=== PATIENT | female | born 1975 | race Caucasian/White ===

== ENCOUNTER 2021-06-30 06:49 | Emergency (ER) | payer BC, SELFPAY ==
[2021-06-30] VITALS (10 sets, daily range): BP systolic 105–157; BP diastolic 66–133; PULSE 80–137; RESP 16–22; TEMP 36.8–38.2; O2SAT 92–100; BMI 28.1
--- NOTE | 2021-06-30 07:30 | ED_ITS ---
HPI - Abdominal Pain General: Chief Complaint: Abdominal Pain Stated Complaint: FEVER, ABD PAIN, DRY HEAVES Time Seen by Provider: 06/30/21 07:17 Source: patient Mode of arrival: ambulatory Limitations: no limitations History of Present Illness: HPI narrative: 46-year-old female states been having abdominal pain since . States it is worsened and is now severe in nature. States that on the right side and her right flank. States she is also had fevers along with chills. Denies any vomiting but has had dry heaves and nausea. She had no diarrhea. She denies any cough. She denies any worsening improving factors. MD elicited complaint: abdominal pain Associated Symptoms: Reports chills and fever(s) Review of Systems Const: Reports: fever(s), chills and body aches Eyes: Denies: blurry vision or eye discomfort ENMT: Denies: throat pain or dental pain Card: Denies: chest pain Resp: Denies: dyspnea GI: Reports: abdominal pain : Reports: flank pain Musc: Denies: neck pain or back pain Skin/Breast: Denies: rash Neuro: Denies: headache(s) Psych: Denies: depression Jono/Lymph: Denies: easy bruising All/Imm: Denies: urticaria PFSH ED PFSH: Social History (Updated 09/11/20 @ 10:39 by Nimco Gaytan [facility]) Smoking and tobacco status: never smoked Alcohol intake: never Physical Exam Const: COMMON NORMALS: no acute distress, patient oriented x3 and healthy appearing HENMT: COMMON NORMALS: normocephalic and atraumatic HEAD & SCALP: normocephalic and atraumatic Eye: COMMON NORMALS: Equal, round and reactive pupils present and EOMs intact bilaterally PUPIL: Yes Equal, round and reactive pupils present Neck/C-Spine: COMMON NORMALS: full ROM and supple Chest: COMMONS NORMALS: normal inspection of the chest and normal palpation of entire chest wall Resp: COMMON NORMALS: normal respiratory effort, No retractions, No use of accessory muscles and clear to auscultation bilaterally AUSCULTATION: clear to auscultation bilaterally Cardio: COMMON NORMALS: regular rate, regular rhythm and No murmurs present (Cardio) RATE: regular rate RHYTHM: regular rhythm GI: COMMON NORMALS: Normal to inspection, nondistended, normoactive bowel sounds present, Soft to palpation, non-tender and no masses PALPATION: Yes Soft to palpation Extremity: COMMON NORMALS: normal to inspection and full ROM Neuro: COMMON NORMALS: patient oriented x3, moves all extremities and no focal motor deficits Psych: COMMON NORMALS: mental status grossly normal, Normal thought process present and cooperative THOUGHT PROCESS: Normal thought process present Skin: COMMON NORMALS: no rashes or lesions noted and no wounds GENERAL SKIN EXAM: no rashes or lesions noted Course Vital Signs: Vital signs: Vital Signs Temperature 98.2 F 06/30/21 10:00 Pulse Rate 97 06/30/21 10:00 Respiratory Rate 18 06/30/21 10:00 Blood Pressure 120/77 06/30/21 10:00 Pulse Oximetry 92 06/30/21 10:00 MDM - Abdominal Pain MDM Narrative: Medical decision making narrative: Patient presents here with acute kidney infection. She feels much improved here and is no longer in pain. She said no vomiting here. We will give her an IV dose antibiotics here and place her on Keflex for home. She is to follow-up with PCP and return to the ER if worsening. She does have some hyponatremia likely due to dehydration. I did give her IV fluids here. Lab Data: Labs: Lab Results 06/30/21 06/30/21 06/30/21 Range/Units 07:42 07:42 07:42 WBC 11.9 H (4.0-10.0) 10^3/ uL RBC 5.08 (4.1-5.3) 10^6/u L Hgb 14.4 (11.5-15.3) g/dL Hct 45.0 (37.0-47.0) % MCV 88.6 (81-99) fL MCH 28.3 (28.0-34.0) pg MCHC 32.0 (30.0-36.0) g/dL RDW 15.7 H (12.1-15.1) % Plt Count 161 (130-400) 10^3/c mm MPV 11.4 H (7.4-10.4) fL Neut % (Auto) 85.6 % Lymph % (Auto) 7.3 % [place] % (Auto) 6.0 % Eos % (Auto) 0.1 % Baso % (Auto) 0.4 % Neut # (Auto) 10.15 H (1.8-7.7) 10^3/u L Lymph # (Auto) 0.9 (0.8-4.8) 10^3/u L [place] # (Auto) 0.7 (0.2-0.9) 10^3/u L Eos # (Auto) 0.0 (0.0-0.8) 10^3/u L Baso # (Auto) 0.1 (0.0-0.1) 10^3/u L Nucleated RBC % (a uto) 0 % Nucleated RBCs # 0.0 /100WBC Sodium Cancelled Potassium Cancelled Chloride Cancelled Carbon Dioxide Cancelled Anion Gap Cancelled BUN Cancelled Creatinine Cancelled GFR Calculation Cancelled Glucose Cancelled Calculated Osmolal ity Cancelled Calcium Cancelled Total Bilirubin Cancelled AST Cancelled ALT Cancelled Alkaline Phosphata se Cancelled Total Protein Cancelled Albumin Cancelled Globulin Cancelled Lipase Cancelled Urine Color (Yellow) Urine Appearance (CLEAR) Urine pH (5-7) Ur Specific Gravit y (1.005-1.030) Urine Protein (Negative) Urine Glucose (UA) (Normal) Urine Ketones (Negative) Urine Blood (Negative) Urine Nitrate (Negative) Urine Bilirubin (Negative) Urine Urobilinogen (Negative) mg/dL Ur Leukocyte Reny ase (Negative) Urine RBC (0-2) /hpf Urine WBC (0-5) /hpf Ur Squamous Epith Cells (0-5) /hpf Amorphous Sediment Urine Bacteria (NONE) /hpf SARS-CoV-2 Ag (Rap id) Negative (Negative) 06/30/21 06/30/21 Range/Units 08:24 10:08 WBC (4.0-10.0) 10^3/ uL RBC (4.1-5.3) 10^6/u L Hgb (11.5-15.3) g/dL Hct (37.0-47.0) % MCV (81-99) fL MCH (28.0-34.0) pg MCHC (30.0-36.0) g/dL RDW (12.1-15.1) % Plt Count (130-400) 10^3/c mm MPV (7.4-10.4) fL Neut % (Auto) % Lymph % (Auto) % [place] % (Auto) % Eos % (Auto) % Baso % (Auto) % Neut # (Auto) (1.8-7.7) 10^3/u L Lymph # (Auto) (0.8-4.8) 10^3/u L [place] # (Auto) (0.2-0.9) 10^3/u L Eos # (Auto) (0.0-0.8) 10^3/u L Baso # (Auto) (0.0-0.1) 10^3/u L Nucleated RBC % (a uto) % Nucleated RBCs # /100WBC Sodium 127 L Potassium 3.2 L Chloride 96 L Carbon Dioxide 20 L Anion Gap 14.2 BUN 10 Creatinine 1.1 H GFR Calculation 53.7 L Glucose 108 Calculated Osmolal ity 264 L Calcium 8.3 L Total Bilirubin 0.5 AST 31 ALT 73 H Alkaline Phosphata se 153 H Total Protein 6.9 Albumin 3.3 L Globulin 3.6 Lipase 9 L Urine Color Yellow (Yellow) Urine Appearance Hazy A (CLEAR) Urine pH 5 (5-7) Ur Specific Gravit y 1.010 (1.005-1.030) Urine Protein 2+ H (Negative) Urine Glucose (UA) Norm (Normal) Urine Ketones Negative (Negative) Urine Blood 3+ H (Negative) Urine Nitrate Positive H (Negative) Urine Bilirubin 1+ H (Negative) Urine Urobilinogen 4 H (Negative) mg/dL Ur Leukocyte Reny ase 1+ H (Negative) Urine RBC 15-25 H (0-2) /hpf Urine WBC 15-25 H (0-5) /hpf Ur Squamous Epith Cells 15-25 H (0-5) /hpf Amorphous Sediment Not Reportable Urine Bacteria 2+ H (NONE) /hpf SARS-CoV-2 Ag (Rap id) (Negative) Discharge Plan Discharge Patient Disposition: Home Clinical Impression: Pyelonephritis Condition: Stable Prescriptions: New hydrocodone-acetaminophen 5-325 mg tablet 1 tab PO Q6H PRN (Reason: pain) Qty: 14 RF: 0 cephalexin 500 mg capsule 500 mg PO QID 10 Days Qty: 40 RF: 0 ondansetron 4 mg tablet,disintegrating 4 mg PO Q6H PRN (Reason: nausea and vomiting) Qty: 14 RF: 0 Discharge Orders: Discharge ED (Routine); Ordered 06/30/21 Ordered By: Zaida Amaya Referrals: Beena Valle PA-C [Primary Care Provider] - 1-3 days Discharge Diet: Advance as tolerated Discharge Activity: Resume usual activity Patient Instructions: Acute Pyelonephritis (ED), Opioid Safety Coding Level of Care Code ED Shirt Turner for Dongg Fwd Exam Comprehensive
--- NOTE | 2021-06-30 07:31 | XRR_ITS ---
PROCEDURE INFORMATION: Exam: XR Chest Exam date and time: 06/30/2021 7:31 AM Age: 46 years old Clinical indication: Dyspnea and fever TECHNIQUE: Imaging protocol: XR of the chest. Views: 1 view. Total images: 1 COMPARISON: No relevant prior studies available. FINDINGS: Lungs: Unremarkable. No consolidation. Pleural spaces: Unremarkable. No pleural effusion. No pneumothorax. Heart/Mediastinum: Unremarkable. No cardiomegaly. Bones/joints: Unremarkable. XR/XR chest 1V portable [id number] IMPRESSION: No acute findings.
[2021-06-30] MEDS: sodium chloride 0.9% 1,000 ML 999 ML IV ×3 (07:40→11:10)
[2021-06-30] MEDS: acetaminophen 500 mg Tablet 1000 MG PO (07:51)
[2021-06-30] MEDS: ondansetron 2 mg/ML SDV 2 mL 4 MG IVP (07:52)
[2021-06-30] MEDS: HYDROmorphone 1 mg/mL INJ 1 mL IVP ×2 (07:54→11:09)
[2021-06-30 07:59] LABS: Basophils # 0.1 10^3/uL (0.0-0.1); Basophils % 0.4 %; Eosinophils % 0.1 %; Hemoglobin 14.4 g/dL (11.5-15.3); Lymphocytes # 0.9 10^3/uL (0.8-4.8); Lymphocytes % 7.3 %; Mean Corpuscular Hemoglobin 28.3 pg (28.0-34.0); Mean Corpuscular Volume 88.6 fL (81-99); Mean Platelet Volume 11.4 fL (7.4-10.4); Monocytes # 0.7 10^3/uL (0.2-0.9); Neutrophils # 10.15 10^3/uL (1.8-7.7); Neutrophils % 85.6 %; Nucleated Red Blood Cells % 0 %; Platelet Count 161 10^3/cmm (130-400); Red Blood Count 5.08 10^6/uL (4.1-5.3); Red Cell Distribution Width 15.7 % (12.1-15.1); White Blood Count 11.9 10^3/uL (4.0-10.0)
[2021-06-30 08:11] LABS: SARS Covid-2 Antigen Negative (Negative)
--- NOTE | 2021-06-30 08:36 | CTR_ITS ---
PROCEDURE INFORMATION: Exam: CT Abdomen And Pelvis With Contrast Exam date and time: 06/30/2021 8:36 AM Age: 46 years old Clinical indication: Abdominal pain; Localized; Prior surgery; Surgery type: Multiple surgeries related to nephrolithiasis. ; Patient HX: Lower abd pain. History of RT renal atrophy due to nephrolithiasis and surgery. TECHNIQUE: Imaging protocol: Computed tomography of the abdomen and pelvis with contrast. Total images: 243 Radiation optimization: All CT scans at this facility use at least one of these dose optimization techniques: automated exposure control; mA and/or kV adjustment per patient size (includes targeted exams where dose is matched to clinical indication); or iterative reconstruction. Contrast material: VISI 320; Contrast volume: 75 ml; Contrast route: INTRAVENOUS (IV); COMPARISON: CR (CHEST, ) 06/30/2021 7:34 AM RADIATION DOSE METRICS: Total DLP (mGy-cm): 1385.38 FINDINGS: Lungs: Mild dependent atelectasis. Liver: Normal. No mass. Gallbladder and bile ducts: Prior cholecystectomy noted. Pancreas: Normal. No ductal dilation. Spleen: Normal. No splenomegaly. Adrenal glands: Normal. No mass. Kidneys and ureters: Heterogeneous enhancement of the right kidney with perinephric fatty stranding may be related prior surgery and scarring but acute pyelonephritis cannot be excluded. No old films available for comparison. There is mild dilatation to an upper pole calyx within the right kidney. No renal, ureteral, nor bladder calculi detected. There are renal cysts present within the right kidney with the largest measuring 2.6 cm and contains milk of calcium. Stomach and bowel: Unremarkable. No obstruction. No mucosal thickening. Appendix: No evidence of appendicitis. Intraperitoneal space: Unremarkable. No free air. No significant fluid collection. Vasculature: Incidental phleboliths noted. Mild atherosclerotic disease is evident. Lymph nodes: Unremarkable. No enlarged lymph nodes. Urinary bladder: Unremarkable as visualized. Reproductive: Unremarkable as visualized. Bones/joints: Unremarkable. No acute fracture. Soft tissues: Unremarkable. CT/CT abdomen pelvis w con* [id number] IMPRESSION: 1. Heterogeneous enhancement of the right kidney with perinephric fatty stranding may be related prior surgery and scarring but acute pyelonephritis cannot be excluded. No old films available for comparison. There is mild dilatation to an upper pole calyx within the right kidney. 2. No renal, ureteral, nor bladder calculi detected. COMMENTS: Consistent with the [place] [employer]'s Incidental Findings Committee white paper (J Am Renetta Radiol 2018): Any incidental renal lesion less than 1 cm or classified as too small to characterize, or any incidental cystic renal lesion characterized as simple-appearing, is likely benign. No follow-up imaging is recommended for these lesions per consensus recommendations based on imaging criteria. Radiation Dose CTDIVOL = (mGy): DLP = 1385.38 (mGy-cm)
[2021-06-30 09:00] LABS: Alanine Aminotransferase 73 U/L (0-33); Albumin Level 3.3 g/dL (3.5-5.2); Alkaline Phosphatase 153 IU/L (35-105); Anion Gap 14.2 (5-19); Aspartate Amino Transferase 31 U/L (0-32); Blood Urea Nitrogen 10 mg/dL (6-20); Calcium 8.3 mg/dL (8.5-10.5); Carbon Dioxide 20 mmol/L (22-29); Chloride 96 mmol/L (98-107); Creatinine Clr Calc Pharmacy 70.9813; Globulin 3.6 g/dL (1.3-4.6); Glomerular Filtration Rate 53.7 mL/min (90-130); Glucose 108 mg/dL (65-115); Lipase 9 U/L (13-60); Osmolality Calculated 264 mOsm/kg (285-295); Potassium 3.2 mmol/L (3.5-5.1); Sodium 127 mmol/L (136-145); Total Bilirubin 0.5 mg/dL (0.15-1.2); Total Protein 6.9 g/dL (6.6-8.7)
[2021-06-30] MEDS: iodixanol 320 mg/mL 100mL Btl IV (09:19)
[2021-06-30 10:30] LABS: Urine Appearance Hazy (CLEAR); Urine Color Yellow (Yellow); pH Urine 5 (5-7)
[2021-06-30 10:31] LABS: Add Urine Microscopic? YES; Bilirubin Urine 1+ (Negative); Blood Urine 3+ (Negative); Glucose Urine UA Norm (Normal); Ketones Urine Negative (Negative); Leukocyte Esterase Urine 1+ (Negative); Nitrate Urine Positive (Negative); Protein Urine 2+ (Negative); Urobilinogen Urine 4 mg/dL (Negative)
[2021-06-30 10:32] LABS: RBC Urine 15-25 /hpf (0-2); Squamous Epithelial Cell Urine 15-25 /hpf (0-5); WBC Urine 15-25 /hpf (0-5)
[2021-06-30 10:33] LABS: Add Urine Culture? No; Bacteria Urine 2+ /hpf
[2021-06-30] MEDS: cefTRIAXone 1,000 MG in sodium chloride 0.9% (plus) 50 ML 100 MG IV (11:10)
== END 2021-06-30 12:23 | disposition home or self-care (01) ==
PROVIDERS: Emergency Provider Emergency Medicine; PCP Physician Assistant
DX: N12 Tubulo-interstitial nephritis, not specified as acute or chronic (principal); Z20.822 Contact with and (suspected) exposure to COVID-19
CPT/HCPCS: 71045; 74177; 80053; 81001; 83690; 85025; 87426; 96365; 96375; 96376; 99284; J0696; J1170; J2405; J7030; Q9967

== ENCOUNTER 2023-01-21 20:22 | Emergency (ER) | payer BC, SELFPAY ==
--- NOTE | 2023-01-21 20:29 | XRR_ITS ---
PROCEDURE INFORMATION: Exam: XR Chest Exam date and time: 01/21/2023 9:50 PM Age: 47 years old Clinical indication: Shortness of breath; Additional info: SOB, chest pain, back pain TECHNIQUE: Imaging protocol: Radiologic exam of the chest. Views: 1 view. COMPARISON: CR XR chest 1V portable [id number] 06/30/2021 7:34 AM FINDINGS: Lungs: Unremarkable. No consolidation. Pleural spaces: Unremarkable. No pleural effusion. No pneumothorax. Heart/Mediastinum: Unremarkable. No cardiomegaly. Bones/joints: Unremarkable. XR/XR chest 1V portable [id number] IMPRESSION: No acute findings.
[2023-01-21 20:32] VITALS: BP 145/98; PULSE 91; RESP 16; O2SAT 98
--- NOTE | 2023-01-21 20:36 | ECG_ITS ---
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 Measurements Intervals [place] Rate: 94 P: 63 SC: 158 QRS: 54 QRSD: 79 T: 53 QT: 327 QTc: 409 Interpretive Statements SINUS RHYTHM No previous ECG available for comparison Electronically Signed On 01-21-2023 22:50:25 IRRIGATION SUPERVISOR by Dennis Aceves M.D. [id number] f
[2023-01-21 21:20] LABS: Basophils % 0.4 %; Eosinophils # 0.2 10^3/uL (0.0-0.8); Hematocrit 44.3 % (37.0-47.0); Hemoglobin 13.9 g/dL (11.5-15.3); Lymphocytes # 1.6 10^3/uL (0.8-4.8); Lymphocytes % 16.1 %; Mean Corpuscular HGB Conc 31.4 g/dL (30.0-36.0); Mean Corpuscular Hemoglobin 28.8 pg (28.0-34.0); Mean Corpuscular Volume 91.9 fl (81-99); Mean Platelet Volume 10.6 fL (7.4-10.4); Monocytes # 0.8 10^3/uL (0.2-0.9); Monocytes % 7.6 %; Neutrophils # 7.29 10^3/uL (1.8-7.7); Neutrophils % 73.5 %; Nucleated Red Blood Cells % 0 %; Platelet Count 259 10^3/cmm (130-400); Red Blood Count 4.82 10^6/uL (4.1-5.3); Red Cell Distribution Width 13.6 % (12.1-15.1); White Blood Count 9.9 10^3/uL (4.0-10.0)
[2023-01-21 21:29] LABS: INR 0.91 (0.8-1.2)
[2023-01-21 21:30] VITALS: BP 137/91; PULSE 84; RESP 16; O2SAT 91
--- NOTE | 2023-01-21 21:30 | ED_ITS ---
HPI - Chest Pain General: Chief Complaint: Chest Pain Stated Complaint: SOB\BP High\Back Pain, Pain above left Breaset Time Seen by Provider: 01/21/23 21:20 Source: patient Mode of arrival: ambulatory Limitations: no limitations History of Present Illness: 47-year-old female states over the last 2 days she has been having some intermittent chest pain states been a dull ache in the center of her chest she is also had some dyspnea with some radiation to her arm. States that her pain is currently a 1 out of 10 she had some nausea denies any vomiting denies any abdominal pain currently. She does have reflux as well and states her reflux is been worsening. Associated symptoms: Reports dyspnea; Deny abdominal pain, fever(s), nausea or vomiting Review of Systems Const: Denies: fever(s), chills, body aches or change in appetite Eyes: Denies: blurry vision or eye discomfort ENMT: Denies: throat pain or dental pain Card: Reports: chest pain Resp: Reports: dyspnea GI: Denies: abdominal pain, nausea, vomiting or diarrhea : Denies: dysuria Musc: Denies: neck pain or back pain Skin/Breast: Denies: rash Neuro: Denies: headache(s) Psych: Denies: depression Jono/Lymph: Denies: easy bruising All/Imm: Denies: urticaria PFSH ED PFSH: Medical History No pertinent past medical history Social History Smoking and tobacco status: never smoked Alcohol intake: never Physical Exam Const: COMMON NORMALS: no acute distress, patient oriented x3 and healthy appearing HENMT: COMMON NORMALS: normocephalic and atraumatic HEAD & SCALP: normoc ephalic and atraumatic Eye: COMMON NORMALS: Equal, round and reactive pupils present and EOMs intact bilaterally PUPIL: Yes Equal, round and reactive pupils present Neck/C-Spine: COMMON NORMALS: full ROM and supple Chest: COMMONS NORMALS: normal inspection of the chest and normal palpation of entire chest wall Resp: COMMON NORMALS: normal respiratory effort, No retractions, No use of accessory muscles and clear to auscultation bilaterally AUSCULTATION: clear to auscultation bilaterally Cardio: COMMON NORMALS: regular rate, regular rhythm and No murmurs present (Cardio) RATE: regular rate RHYTHM: regular rhythm GI: COMMON NORMALS: Normal to inspection, nondistended, normoactive bowel sounds present, Soft to palpation, non-tender and no masses PALPATION: Yes Soft to palpation Extremity: COMMON NORMALS: normal to inspection and full ROM Neuro: COMMON NORMALS: patient oriented x3, moves all extremities and no focal motor deficits Psych: COMMON NORMALS: mental status grossly normal, Normal thought process present and cooperative THOUGHT PROCESS: Normal thought process present Skin: COMMON NORMALS: no rashes or lesions noted and no wounds GENERAL SKIN EXAM: no rashes or lesions noted Course Vital Signs: Vital signs: Vital Signs Pulse Rate 86 01/21/23 23:00 Respiratory Rate 17 01/21/23 23:00 Blood Pressure 134/80 01/21/23 23:00 Pulse Oximetry 99 01/21/23 23:00 Oxygen Delivery Me thod 01/21/23 20:32 MDM - Chest Pain Medical Decision Making Patient presents for chest pain her troponins D-dimer and EKGs were all normal she has been well-appearing here I feel she is stable for discharge has no signs of acute coronary syndrome or dissection she is to follow-up with her PCP and get an outpatient stress test return if worsening she understands agrees to plan. Lab Data 01/21/23 20:57 01/21/23 20:57 Radiology Impressions Chest X-Ray 01/21/23 20:29 IMPRESSION: No acute findings. Laboratory Results WBC 9.9 10^3/uL (4.0-10.0) 01/21/23 20:57 RBC 4.82 10^6/uL (4.1-5.3) 01/21/23 20:57 Hgb 13.9 g/dL (11.5-15.3) 01/21/23 20:57 Hct 44.3 % (37.0-47.0) 01/21/23 20:57 MCV 91.9 fl (81-99) 01/21/23 20:57 MCH 28.8 pg (28.0-34.0) 01/21/23 20:57 MCHC 31.4 g/dL (30.0-36.0) 01/21/23 20:57 RDW 13.6 % (12.1-15.1) 01/21/23 20:57 Plt Count 259 10^3/cmm (130-400) 01/21/23 20:57 MPV 10.6 fL (7.4-10.4) H 01/21/23 20:57 Neut % (Auto) 73.5 % 01/21/23 20:57 Lymph % (Auto) 16.1 % 01/21/23 20:57 [place] % (Auto) 7.6 % 01/21/23 20:57 Eos % (Auto) 2.0 % 01/21/23 20:57 Baso % (Auto) 0.4 % 01/21/23 20:57 Neut # (Auto) 7.29 10^3/uL (1.8-7.7) 01/21/23 20:57 Lymph # (Auto) 1.6 10^3/uL (0.8-4.8) 01/21/23 20:57 [place] # (Auto) 0.8 10^3/uL (0.2-0.9) 01/21/23 20:57 Eos # (Auto) 0.2 10^3/uL (0.0-0.8) 01/21/23 20:57 Baso # (Auto) 0.0 10^3/uL (0.0-0.1) 01/21/23 20:57 Nucleated RBC % (auto) 0 % 01/21/23 20:57 Nucleated RBCs # 0.0 /100WBC 01/21/23 20:57 PT 12.50 SECONDS (12.1-14.9) 01/21/23 20:57 INR 0.91 (0.8-1.2) 01/21/23 20:57 D-Dimer 0.51 ug/mIFEU (0-0.59) 01/21/23 20:31 Sodium 138 mmol/L (136-145) 01/21/23 20:57 Potassium 4.1 mmol/L (3.5-5.1) 01/21/23 20:57 Chloride 103 mmol/L (98-107) 01/21/23 20:57 Carbon Dioxide 25 mmol/L (22-29) 01/21/23 20:57 Anion Gap 14.1 (5-19) 01/21/23 20:57 BUN 13 mg/dL (6-20) 01/21/23 20:57 Creatinine 1.1 mg/dL (0.5-0.9) H 01/21/23 20:57 GFR Calculation 53.5 mL/min (90-130) L 01/21/23 20:57 Glucose 92 mg/dL (65-115) 01/21/23 20:57 Calculated Osmolality 286 mOsm/kg (285-295) 01/21/23 20:57 Calcium 9.0 mg/dL (8.5-10.5) 01/21/23 20:57 Total Bilirubin 0.2 mg/dL (0.15-1.2) 01/21/23 20:57 AST 13 U/L (0-32) 01/21/23 20:57 ALT 16 U/L (0-33) 01/21/23 20:57 Alkaline Phosphatase 107 U/L (35-105) H 01/21/23 20:57 Troponin T Baseline 6 ng/L (0-10) 01/21/23 20:57 Troponin T 120 Minute 6.00 ng/L (0-10) 01/21/23 22:32 Delta Troponin T 0 ABS# (0-10) 01/21/23 22:32 NT-Pro-B Natriuret Pep 70 pg/mL (0-125) 01/21/23 20:57 Total Protein 7.0 g/dL (6.6-8.7) 01/21/23 20:57 Albumin 3.6 g/dL (3.5-5.2) 01/21/23 20:57 Globulin 3.4 g/dL (1.3-4.6) 01/21/23 20:57 Urine Color Yellow (Yellow) 01/21/23 22:17 Urine Appearance Clear (CLEAR) 01/21/23 22:17 Urine pH 6.5 (5-7) 01/21/23 22:17 Ur Specific [place] 1.020 (1.005-1.030) 01/21/23 22:17 Urine Protein 1+ (Negative) H 01/21/23 22:17 Urine Glucose (UA) Norm (Normal) 01/21/23 22:17 Urine Ketones Negative (Negative) 01/21/23 22:17 Urine Blood 2+ (Negative) H 01/21/23 22:17 Urine Nitrate Negative (Negative) 01/21/23 22:17 Urine Bilirubin Neg (Negative) 01/21/23 22:17 Urine Urobilinogen 1 mg/dL (Negative) H 01/21/23 22:17 Ur Leukocyte Esterase Trace (Negative) H 01/21/23 22:17 Urine RBC 25-40 /hpf (0-2) H 01/21/23 22:17 Urine WBC 25-40 /hpf (0-5) H 01/21/23 22:17 Ur Squamous Epith Cells 15-25 /hpf (0-5) H 01/21/23 22:17 Amorphous Sediment Not Reportable 01/21/23 22:17 Urine Bacteria 2+ /hpf (NONE) H 01/21/23 22:17 Urine Mucus 3+ /hpf 01/21/23 22:17 EKG Data EKG 1: I personally reviewed and interpreted this EKG as follows: EKG interpretation date: 01/21/23 EKG interpretation time: 20:36 Interpretation: nsr hr [address] or t wave abnormalities qrs 79 qtc 378 Discharge Plan Discharge Patient Disposition: Home Clinical Impression: Chest pain Condition: Stable Prescriptions: No Action hydrocodone-acetaminophen 5-325 mg tablet 1 tab PO Q6H PRN (Reason: pain) Qty: 14 0RF ondansetron 4 mg tablet,disintegrating 4 mg PO Q6H PRN (Reason: nausea and vomiting) Qty: 14 0RF Discharge Orders: Discharge ED (Routine); Ordered 01/21/23 Ordered By: Zaida Amaya Referrals: Beena Valle PA-C [Primary Care Provider] - 1-3 days Discharge Diet: Advance as tolerated Discharge Activity: Resume usual activity Patient Instructions: Chest Pain (ED) Coding Level of Care Code ED Childcare Administrator for Chg Iris
[2023-01-21 21:41] LABS: Troponin(5th) Baseline 6 ng/L (0-10)
[2023-01-21] MEDS: morphine 4 mg/mL SDV 1 mL IVP (21:46)
[2023-01-21] MEDS: ondansetron 2 mg/ML SDV 2 mL 4 MG IVP (21:46)
[2023-01-21 21:50] LABS: Alanine Aminotransferase 16 U/L (0-33); Albumin Level 3.6 g/dL (3.5-5.2); Alkaline Phosphatase 107 U/L (35-105); Anion Gap 14.1 (5-19); Aspartate Amino Transferase 13 U/L (0-32); Blood Urea Nitrogen 13 mg/dL (6-20); Carbon Dioxide 25 mmol/L (22-29); Chloride 103 mmol/L (98-107); Globulin 3.4 g/dL (1.3-4.6); Glomerular Filtration Rate 53.5 mL/min (90-130); Glucose 92 mg/dL (65-115); NT Pro B Type Natriuretic Pept 70 pg/mL (0-125); Osmolality Calculated 286 mOsm/kg (285-295); Potassium 4.1 mmol/L (3.5-5.1); Sodium 138 mmol/L (136-145); Total Bilirubin 0.2 mg/dL (0.15-1.2)
[2023-01-21 22:05] LABS: D Dimer 0.51 ug/mIFEU (0-0.59)
[2023-01-21 22:20] VITALS: BP 144/98; PULSE 89; RESP 18; O2SAT 96
--- NOTE | 2023-01-21 22:29 | ECG_ITS ---
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 Measurements Intervals [place] Rate: 83 P: 25 DC: 158 QRS: 53 QRSD: 77 T: 52 QT: 343 QTc: 403 Interpretive Statements SINUS RHYTHM Compared to ECG 01/21/2023 20:36:18 No significant changes Electronically Signed On 01-21-2023 22:51:15 FILENET ADMIN by Dennis Aceves M.D. [id number]
[2023-01-21 22:30] VITALS: BP 122/88; PULSE 86; RESP 18; O2SAT 91
[2023-01-21 22:44] LABS: Bilirubin Urine Neg (Negative); Blood Urine 2+ (Negative); Glucose Urine UA Norm (Normal); Ketones Urine Negative (Negative); Nitrate Urine Negative (Negative); Protein Urine 1+ (Negative); Urine Appearance Clear (CLEAR); Urine Color Yellow (Yellow); Urobilinogen Urine 1 mg/dL (Negative); pH Urine 6.5 (5-7)
[2023-01-21 22:45] LABS: Add Urine Microscopic? YES; Leukocyte Esterase Urine Trace (Negative)
[2023-01-21 22:56] LABS: Add Urine Culture? No; Bacteria Urine 2+ /hpf; Mucus Urine 3+ /hpf; RBC Urine 25-40 /hpf (0-2); Squamous Epithelial Cell Urine 15-25 /hpf (0-5); WBC Urine 25-40 /hpf (0-5)
[2023-01-21 23:00] VITALS: BP 134/80; PULSE 86; RESP 17; O2SAT 99
[2023-01-21 23:08] LABS: Troponin 5 2HR Delta 0 ABS# (0-10)
== END 2023-01-21 23:21 | disposition home or self-care (01) ==
PROVIDERS: Emergency Provider Emergency Medicine; PCP Physician Assistant
DX: R07.9 Chest pain, unspecified (principal)
CPT/HCPCS: 36415; 71045; 80053; 81001; 83880; 84484; 85025; 85378; 85610; 93005; 96374; 96375; 99285; J2270; J2405

== ENCOUNTER 2023-03-19 11:16 | Outpatient (CLI) | payer BC, SELFPAY ==
--- NOTE | 2023-03-19 | ECG_ITS ---
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 Interpretive Statements NAME OF STUDY: TREADMILL STRESS TEST INDICATION: [Chest Pain] EXERCISE DATA: The patient was exercised by [place] protocol. Baseline heart rate was 102 beats per minute. Baseline blood pressure was 132/84 millimeters of mercury. Target heart rate was 148 beats per minute. Maximum heart rate achieved was 145, which was 97% of the target heart rate. Maximum blood pressure was 172/76 millimeters of mercury. Total exercise time was 6 minutes and 11 seconds. Maximum METs achieved was 10.2. The reason for ending the test was maximal effort acheived and patient complained of shortness of breath, dull ache in the center of chest. ELECTROCARDIOGRAM: BASELINE: Showed sinus rhythm, normal axis, no significant ST-T changes at the baseline noted. [] EXERCISE: At the peak exercise level, [] No significant ST-T changes suggestive of ischemia noted. [] RECOVERY: During the recovery period, heart rate dropped appropriately. No significant ST-T changes in the recovery suggestive of ischemia noted. [] CONCLUSION: 1. Exercise capacity fair 2. Heart rate response was sub optimal 3. Blood pressure response was appropriate 4. Symptoms of shortness of breath and chest pain were noted. 5. EKG did not show evidence of ischemia, however patient did not reach target heart rate and at maximal effort, was at 97% of target heart rate. This decreases the sensitivity of testing. Electronically Signed On 04-06-2023 11:38:52 CDT by Dennis Aceves M.D. [id number]
--- NOTE | 2023-03-19 11:53 | USCV_ITS ---
Desiree Pisano Age: 47 Gender: F : 1975 Exam Date: 03/19/2023 12:31 Ordering Phys: Beena Valle Technologist: Jaci Erwin Exam Location: [facility] [place] Indication: Not feeling well BP: / HR: 86 Rhythm: Sinus Technical Quality: Adequate MEASUREMENTS (Male / Female) Normal Values 2D ECHO LV Diastolic Diameter PLAX 4.1 cm 4.2 - 5.9 / 3.9 - 5.3 cm LV Systolic Diameter PLAX 2.6 cm LV Chamber Size 3.4 cm IVS Diastolic Thickness 0.8 cm 0.6 - 1.0 / 0.6 - 0.9 cm IVS Systolic Thickness 1.1 cm LVPW Diastolic Thickness 1.2 cm 0.6 - 1.0 / 0.6 - 0.9 cm LVPW Systolic Thickness 1.3 cm RV Chamber Size 2.0 cm LVOT Diameter 2.0 cm LV Ejection Fraction 2D Teich 67.2 % LV Ejection Fraction MOD 2C 38.9 % LV Ejection Fraction 2C AL 40.1 % LA Diameter 2.5 cm LA Width 1.8 cm LA Height 4.6 cm RA Width 3.4 cm RA Height 3.8 cm Aorta at Sinotubular Diameter 2.9 cm IVC Diameter 1.8 cm M-MODE Aortic Annulus Diameter 3.2 cm LA Ao Ratio MM 1.0 MV E Point Septal Separation 0.7 cm DOPPLER AV Peak Velocity 115.0 cm/s LVOT Peak Velocity 103.0 cm/s AV Area Cont Eq vti 3.0 cm squared AV Area Cont Eq pk 2.9 cm squared MV Peak Velocity 98.0 cm/s MV Area PHT 3.7 cm squared Mitral E to A Ratio 1.1 MV E' Velocity 48.5 cm/s Mitral E to MV E' Ratio 9.9 Mitral E to LV E' Lateral Ratio 10.6 Mitral E to LV E' Septal Ratio 9.4 TR Peak Velocity 89.9 cm/s TR Peak Gradient 3.2 mmHg TR Mean Velocity 60.9 cm/s TR Mean Gradient 1.7 mmHg TR Velocity Time Integral 19.8 cm TV Peak E Velocity 41.0 cm/s RV Acceleration Time 0.1 s RV Ejection Time 0.3 s RV AcT/ET 0.4 FINDINGS Left Ventricle Normal left ventricular size and systolic function, EF 67%. No regional wall motion abnormalities. Right Ventricle The right ventricle is normal in size and function. Right Atrium The right atrium is normal in size. Left Atrium The left atrium is normal in size. Mitral Valve No gross abnormalities noted Aortic Valve No gross abnormalities noted Tricuspid Valve No gross abnormalities noted Pulmonic Valve No gross abnormalities noted Pericardium Normal pericardium without effusion. Aorta Normal ascending aorta dimension. IVC Normal inferior vena cava. CONCLUSIONS Normal left ventricular size and systolic function, EF 67%. No regional wall motion abnormalities. Normal cardiac chamber sizes. No valvular abnormalities were noted. There is no pericardial effusion. There are no intracardiac masses. No similar previous studies are available for comparison Dr MaryB eth Chen MD FACC (Electronically Signed) Final Date: 21 March 2023 14:48 S
[2023-03-19 11:55] VITALS: BMI 28.3
[2023-03-19 14:00] VITALS: BP 132/84; PULSE 110
== END 2023-03-19 11:17 | disposition home or self-care (01) ==
PROVIDERS: PCP Physician Assistant; Visit Provider Physician Assistant
DX: R07.9 Chest pain, unspecified (principal); R06.02 Shortness of breath; R63.5 Abnormal weight gain
CPT/HCPCS: 93017; 93306

== ENCOUNTER 2023-07-27 09:51 | Outpatient (CLI) | payer BC, SELFPAY ==
--- NOTE | 2023-07-27 | ECG_ITS ---
[facility] Test Date: 2023-07-27 Pat Name: Desiree Pisano Department: Room: Gender: Female Digital Media Associate: Melony Chester : 1975 Requested By: Lory Rivas Order Number: [id number] Myriam MD: Lory Rivas M.D. Interpretive Statements NAME OF STUDY: LEXISCAN SESTAMIBI STRESS TEST INDICATION: Chest Pain; Shortness of Breath PROCEDURE: At the baseline, the blood pressure was 123/82 mmHg, oxygen saturation 95% with a heart rate of 79 bpm. The electrocardiogram showed sinus rhythm, normal axis with normal ST and T's. The Lexiscan was infused over a period of 20 seconds. A total of 0.4 milligrams of Lexiscan was infused. The stress phase was continued for a total of 5 minutes. Heart rate at the end of the stress phase was 97 bpm, oxygen saturation 99% with a blood pressure 132/82 mmHg. The EKG at the peak infusion revealed significant ST-T wave changes. Sestamibi was injected 20 seconds after the Lexiscan infusion. Blood pressure at the end of the recovery phase was 21 over 88 mmHg, oxygen saturation 94% with a heart rate of of 82 beats per minute. CONCLUSION: 1. Normal EKG response to LexiScan infusion. 2. No LexiScan induced chest pain or cardiac arrhythmia. 3. Normal blood pressure and heart rate response. 4. Sestamibi/sestamibi perfusion scan pending; see separate report. Electronically Signed On 07-28-2023 17:25:19 CDT by Lory Rivas M.D. [id number]
[2023-07-27 09:34] VITALS: BMI 32.8
--- NOTE | 2023-07-27 09:53 | NMCV_ITS ---
NM antonio perf SPECT r/s* [id number] Cristina Pisanoline Age: 48 Gender: F : 1975 Exam Date: 07/27/2023 09:53 Ordering Phys: Lory Rivas MD ([email or web address]) Technologist: RONNIE Alford Exam Location: [facility] Indications: SHORTNESS OF BREATH STRESS TEST Please see separate stress test report in [facility] for full findings IMAGE PROTOCOL Rest/Stress 1 Lexiscan Day Radiopharmaceutical Dose (mCi) Administration Site Administered by Rest: Tc-99m 10.4 IV RONNIE Benjamin Sestamibi Stress:Tc-99m 32.3 IV RONNIE Benjamin Sestamibi Rest: 27-Jul-2023 60 Discovery 630 Stress: 27-Jul-2023 30 Discovery 630 0.4mg Lexiscan. Images obtained in supine and prone position. SPECT RESULTS Technical Quality: Excellent Raw Data Analysis: Normal Image Corrections: No attenuation or motion correction applied Summed Stress Score: 1 Summed Rest Score: 0 Summed Difference Score: 1 PERFUSION FINDINGS SPECT images demonstrate homogeneous tracer distribution throughout the myocardium. FUNCTIONAL RESULTS (calculated via Gated SPECT) Stress Image LV EF (%): 83 Stress EDV (mL):80 TID: 1.02 Stress ESV (mL):14 FUNCTIONAL FINDINGS: The left ventricle is normal in size. Transient Ischemia Dilatation of 1. The left ventricular ejection fraction is normal with a value of 83%. There is hyperdynamic left ventricular global systolic function. There is hyperdynamic left ventricular wall thickening. IMPRESSIONS 1. Myocardial perfusion imaging is normal. 2. There is hyperdynamic left ventricular global systolic function,LVEF=83% no regional wall motion abnormality. 3. EKG portion of the study will be reported separately. Lory Rivas MD (Electronically Signed) Final Date: 28 July 2023 17:23 S
[2023-07-27] MEDS: regadenoson 0.4 Mg/5 ml Syringe IVP (11:14)
[2023-07-27] MEDS: ondansetron 2 mg/ML SDV 2 mL 4 MG IVP (11:30)
[2023-07-27 11:35] VITALS: BP 121/88; PULSE 82
== END 2023-07-27 09:52 | disposition home or self-care (01) ==
LOC: CDL 09:51
PROVIDERS: PCP Physician Assistant; Visit Provider Internal Medicine Cardiovascular Disease
DX: R06.02 Shortness of breath (principal); R07.9 Chest pain, unspecified
CPT/HCPCS: 36415; 78452; 93017; 96374; 96375; A9500; J2405; J2785